=== PATIENT | male | born 1990 | race Caucasian/White ===

== ENCOUNTER 2019-06-13 14:30 | Emergency (ER) | payer SELFPAY ==
[2019-06-13 14:31] VITALS: BP 163/93; PULSE 77; RESP 16; O2SAT 100; BMI 28.3
--- NOTE | 2019-06-13 14:36 | XR_ITS ---
WS: [id number] CHEST 2 VIEWS HISTORY: cp COMPARISON: None available. Lungs: Clear with no abnormality. No pleural effusion or pneumothorax. Cardiac size: Normal. Mediastinum/Aorta: Normal mediastinum. Bones: Normal. XR/XR chest 2V* [id number] IMPRESSION: Normal chest.
--- NOTE | 2019-06-13 14:36 | ECG_ITS ---
Measurements Intervals [place] Rate: 71 P: 48 OK: 132 QRS: 55 QRSD: 93 T: 40 QT: 366 QTc: 398 SINUS RHYTHM INCOMPLETE RIGHT BUNDLE BRANCH BLOCK No previous ECG available for comparison Electronically Signed On 06-13-2019 22:00:17 CDT by Purvi Blanco M.D. [id number]
--- NOTE | 2019-06-13 14:37 | W.ED.CHESTPA ---
HPI - Chest Pain General: Chief Complaint: Chest Pain Stated Complaint: CHEST PAINS Time Seen by Provider: 06/13/19 14:32 Source: patient Mode of arrival: ambulatory Limitations: no limitations History of Present Illness: HPI narrative: 28-year-old male has had chest pain over the last 2 years. States pain is been episodic in nature. He denies any worsening improving factors. He denies any pain currently. Denies vomiting or diarrhea. MD complaint: chest pain Onset (ago): year(s) Timing of current episode: episodic Pain location: substernal Pain radiation: none Severity: mild Quality: sharp Relieving factors: nothing Exacerbating factors: nothing Associated symptoms: Deny abdominal pain, dyspnea, fever(s), nausea or vomiting Review of Systems Const: Denies: fever, chills, body aches or change in appetite Eyes: Denies: blurry vision or eye discomfort ENMT: Denies: throat pain or dental pain Card: Reports: chest pain Resp: Denies: shortness of breath GI: Denies: abdominal pain, nausea, vomiting or diarrhea : Denies: painful urination Musc: Denies: neck pain or back pain Skin/Breast: Denies: rash Neuro: Denies: headache Psych: Denies: depression Chago/Lymph: Denies: easy bruising All/Imm: Denies: hives PFSH ED PFSH: Social History Smoking and tobacco status: never smoked Physical Exam Const: COMMON NORMALS: no apparent distress, oriented x3 and healthy appearing HENMT: COMMON NORMALS: normocephalic and head/scalp atraumatic HEAD & SCALP: normocephalic and atraumatic Eye: COMMON NORMALS: PERRL and EOMs intact bilaterally PUPIL: Yes PERRL Neck/C-Spine: COMMON NORMALS: full ROM and supple Chest: COMMONS NORMALS: inspection of chest normal and palpation of chest normal Resp: COMMON NORMALS: normal respiratory effort, no retractions, no use of accessory muscles and clear to auscultation bilaterally AUSCULTATION: clear to auscultation bilaterally Cardio: COMMON NORMALS: regular rate, regular rhythm and no murmurs RATE: regular rate RHYTHM: regular rhythm GI: COMMON NORMALS: normal to inspection, nondistended, normoactive bowel sounds, soft to palpation, non-tender and no masses PALPATION: Yes soft Extremity: COMMON NORMALS: normal to inspection and full ROM Neuro: COMMON NORMALS: oriented x3, moves all extremities and no focal motor deficits Psych: COMMON NORMALS: mental status grossly normal, thought process normal and cooperative THOUGHT PROCESS: normal thought process Skin: COMMON NORMALS: no rashes or lesions noted and no wounds GENERAL SKIN EXAM: no rashes or lesions noted Course Vital Signs: Vital signs: Vital Signs Pulse Rate 77 06/13/19 14:31 Respiratory Rate 16 06/13/19 14:31 Blood Pressure 163/93 06/13/19 14:31 Pulse Oximetry 100 06/13/19 14:31 MDM - Chest Pain MDM Narrative: Medical decision making narrative: Patient presents with chest pain that is likely noncardiac in nature. Pain is been going on for years and he is young and healthy. Patient's EKG and x-ray here are normal. Has no signs of cardiac cause or pulmonary embolism. Patient is stable for discharge and is return if worsening. 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
[2019-06-13 15:43] VITALS: BP 149/84; PULSE 72; RESP 16; O2SAT 98
== END 2019-06-13 15:43 | disposition home or self-care (01) ==
PROVIDERS: Emergency Provider Emergency Medicine
DX: R07.89 Other chest pain (principal)
CPT/HCPCS: 12345; 71046; 93005; 99281; 99283

== ENCOUNTER → 2021-04-03 09:30 | Outpatient (BNVA) | payer OTHER, SELFPAY | PROVIDERS: Visit Provider Nurse Practitioner Family | DX: Z20.822 Contact with and (suspected) exposure to COVID-19 (principal) | CPT/HCPCS: 87426 ==

== ENCOUNTER 2022-09-29 19:43 | Emergency (ER) | payer BC, SELFPAY ==
--- NOTE | 2022-09-29 19:46 | XRR_ITS ---
PROCEDURE INFORMATION: Exam: XR Chest Exam date and time: 09/29/2022 8:01 PM Age: 31 years old Clinical indication: Pain; Chest pressure; Additional info: Cp TECHNIQUE: Imaging protocol: Radiologic exam of the chest. Views: 1 view. COMPARISON: CR XR chest 2V* [id number] 06/13/2019 2:47 PM FINDINGS: Lungs: Unremarkable. No consolidation. Pleural spaces: Unremarkable. No pleural effusion. No pneumothorax. Heart/Mediastinum: Unremarkable. No cardiomegaly. Bones/joints: Unremarkable. XR/XR chest 1V portable [id number] IMPRESSION: No acute findings.
[2022-09-29 19:49] VITALS: BP 155/96; PULSE 86; RESP 16; TEMP 36.7; O2SAT 99; BMI 27.0
--- NOTE | 2022-09-29 19:54 | ECG_ITS ---
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 Measurements Intervals [place] Rate: 85 P: 12 TN: 108 QRS: 51 QRSD: 82 T: 43 QT: 332 QTc: 396 Interpretive Statements SINUS RHYTHM WITH SHORT TN INTERVAL RSR' in V1, consider RV conduction delay Compared to ECG 06/13/2019 14:49:18 Short TN interval now present Incomplete right bundle-branch block no longer present Electronically Signed On 09-30-2022 12:29:57 CDT by Purvi Blanco M.D. [id number]
--- NOTE | 2022-09-29 20:28 | ED_ITS ---
HPI - Chest Pain General: Chief Complaint: Chest Pain Stated Complaint: chest pain/ back pain Time Seen by Provider: 09/29/22 20:20 Source: patient Mode of arrival: ambulatory Limitations: no limitations History of Present Illness: Patient is a 31-year-old male who presents to ED today with a complaint of chest pain. He states chest pain started earlier today. Patient states he has had countless episodes of previous chest pains that have felt similar. He states he has had discomforts for years although admittedly has never sought any form of medical evaluation. He states pain does not seem to be related to exertion. He does not complain of palpitations or racing heart rate. He has no shortness of breath or difficulty breathing. Does not feel like anxiety is a component. He states most the time pain comes on for a few minutes and then subsides on its own. States he does have a primary care appointment set up for October 13. MD complaint: chest pain Onset (ago): hour(s) Timing of current episode: episodic Prior episodes: Yes Onset: during rest Pain location: substernal and left chest Pain radiation: none Severity: mild Exacerbating factors: nothing Associated symptoms: Deny abdominal pain, dyspnea, fever(s), palpitations or syncope Treatment prior to arrival: none Risk Factors: Coronary artery disease risk factors: none Thoracic aortic dissection risk factors: none Review of Systems Const: Denies: fever(s), chills, body aches, fatigue or malaise Card: Reports: chest pain; Denies: palpitations, irregular heart rhythm, edema, swelling of feet/ankles, lightheadedness, syncope, pre-syncope, dyspnea on exertion, orthopnea or leg pain with exertion Resp: Denies: dyspnea, productive cough, wheezing, pain on inspiration, hemoptysis or chest congestion GI: Denies: abdominal pain Musc: Denies: neck pain, back pain, extremity pain or joint pain Skin/Breast: Denies: rash Neuro: Denies: headache(s) or dizziness PFS ED PFSH: Social History Smoking and tobacco status: never smoked Physical Exam Const: COMMON NORMALS: no acute distress, average body habitus, patient oriented x3, no limitations, healthy appearing, alert and well nourished GENERAL APPEARANCE: cooperative ORIENTATION/CONSCIOUSNESS: Yes awake, Yes oriented to person, Yes oriented to place and Yes oriented to time HENMT: COMMON NORMALS: normocephalic and atraumatic HEAD & SCALP: normal to inspection, normocephalic and atraumatic Neck/C-Spine: COMMON NORMALS: full ROM, no lymphadenopathy, supple, no meningeal signs and no JVD Chest: COMMONS NORMALS: normal inspection of the chest and normal palpation of entire chest wall Resp: COMMON NORMALS: normal respiratory effort and clear to auscultation bilaterally AUSCULTATION: clear to auscultation bilaterally Cardio: COMMON NORMALS: no JVD, regular rate and regular rhythm RATE: regular rate RHYTHM: regular rhythm : COMMON NORMALS: Yes no CVA tenderness BLADDER/KIDNEY EXAM: Yes no CVA tenderness Back/Pelvis: COMMON NORMALS: no CVA tenderness and thoracic and lumbar spine normal to inspection Extremity: COMMON NORMALS: normal to inspection, capillary refill normal, no joint enlargement, no clubbing, cyanosis or edema, no calf tenderness and no pedal edema GENERAL: Yes normal exam except as noted Neuro: COMMON NORMALS: patient oriented x3, moves all extremities, no focal motor deficits, no sensory deficits noted and gait normal SENSORIUM/ORIENTATION: Yes alert, Yes oriented to person, Yes oriented to place and Yes oriented to time MENINGEAL SIGNS: Yes no meningeal signs Skin: COMMON NORMALS: no rashes or lesions noted GENERAL SKIN EXAM: no rashes or lesions noted Course Vital Signs: Vital signs: Vital Signs Temperature 98.0 F 09/29/22 19:49 Pulse Rate 86 09/29/22 19:49 Respiratory Rate 16 09/29/22 19:49 Blood Pressure 155/96 09/29/22 19:49 Pulse Oximetry 99 09/29/22 19:49 MDM - Chest Pain Medical Decision Making Based on patient's history and timeline (reports he has had chest pain episodes for years) I do not have any suspicion for any emergent process causing his chest discomfort. Chest pain is not brought on by exertion. Blood work here is unremarkable. He has a normal trop. CXR is normal. EKG showing sinus rhythm with a short TN interval. Patient has had no complaints of tachycardia or palpitations. He has follow-up with Dr. Mejias on October 13. Patient is stable for discharge. Lab Data 09/29/22 20:13 09/29/22 20:13 Radiology Impressions Chest X-Ray 09/29/22 19:46 IMPRESSION: No acute findings. Laboratory Results WBC 7.0 10^3/uL (4.0-10.0) 09/29/22 20:13 RBC 5.20 10^6/uL (4.1-5.3) 09/29/22 20:13 Hgb 15.6 g/dL (11.7-16.6) 09/29/22 20:13 Hct 44.4 % (42.0-52.0) 09/29/22 20:13 MCV 85.4 fl (80-94) 09/29/22 20:13 MCH 30.0 pg (28.0-34.0) 09/29/22 20:13 MCHC 35.1 g/dL (30.0-36.0) 09/29/22 20:13 RDW 12.4 % (12.1-15.1) 09/29/22 20:13 Plt Count 261 10^3/cmm (130-400) 09/29/22 20:13 MPV 9.6 fL (7.4-10.4) 09/29/22 20:13 Neut % (Auto) 53.3 % 09/29/22 20:13 Lymph % (Auto) 33.9 % 09/29/22 20:13 Petroleum % (Auto) 11.3 % 09/29/22 20:13 Eos % (Auto) 1.0 % 09/29/22 20:13 Baso % (Auto) 0.4 % 09/29/22 20:13 Neut # (Auto) 3.71 10^3/uL (1.8-7.7) 09/29/22 20:13 Lymph # (Auto) 2.4 10^3/uL (0.8-4.8) 09/29/22 20:13 Petroleum # (Auto) 0.8 10^3/uL (0.2-0.9) 09/29/22 20:13 Eos # (Auto) 0.1 10^3/uL (0.0-0.8) 09/29/22 20:13 Baso # (Auto) 0.0 10^3/uL (0.0-0.1) 09/29/22 20:13 Nucleated RBC % (auto) 0 % 09/29/22 20:13 Nucleated RBCs # 0.0 /100WBC 09/29/22 20:13 Sodium 141 mmol/L (136-145) 09/29/22 20:13 Potassium 3.8 mmol/L (3.5-5.1) 09/29/22 20:13 Chloride 102 mmol/L (98-107) 09/29/22 20:13 Carbon Dioxide 29 mmol/L (22-29) 09/29/22 20:13 Anion Gap 13.8 (5-19) 09/29/22 20:13 BUN 15 mg/dL (6-20) 09/29/22 20:13 Creatinine 0.9 mg/dL (0.7-1.2) 09/29/22 20:13 GFR Calculation 99.1 mL/min (90-130) 09/29/22 20:13 Glucose 110 mg/dL (65-115) 09/29/22 20:13 Calculated Osmolality 293 mOsm/kg (285-295) 09/29/22 20:13 Calcium 9.5 mg/dL (8.5-10.5) 09/29/22 20:13 Total Bilirubin 0.9 mg/dL (0.15-1.2) 09/29/22 20:13 AST 19 U/L (0-40) 09/29/22 20:13 ALT 27 U/L (0-41) 09/29/22 20:13 Alkaline Phosphatase 129 U/L (40-130) 09/29/22 20:13 Troponin T Baseline 6 ng/L (0-15) 09/29/22 20:13 Total Protein 7.6 g/dL (6.6-8.7) 09/29/22 20:13 Albumin 4.8 g/dL (3.5-5.2) 09/29/22 20:13 Globulin 2.8 g/dL (1.3-4.6) 09/29/22 20:13 Lipase 41 U/L (13-60) 09/29/22 20:13 Discharge Plan Discharge Patient Disposition: Home Clinical Impression: Atypical chest pain Condition: Stable Prescriptions: No Action No Known Home Medications Discharge Orders: Discharge ED (Routine); Ordered 09/29/22 Ordered By: Lisa Lau Stand Alone Forms: Work/School Release Coding Level of Care Code ED Logistics Planning Manager for Yosef Nunes
[2022-09-29 20:38] LABS: Basophils % 0.4 %; Eosinophils # 0.1 10^3/uL (0.0-0.8); Hematocrit 44.4 % (42.0-52.0); Hemoglobin 15.6 g/dL (11.7-16.6); Lymphocytes # 2.4 10^3/uL (0.8-4.8); Lymphocytes % 33.9 %; Mean Corpuscular HGB Conc 35.1 g/dL (30.0-36.0); Mean Corpuscular Volume 85.4 fl (80-94); Mean Platelet Volume 9.6 fL (7.4-10.4); Monocytes # 0.8 10^3/uL (0.2-0.9); Monocytes % 11.3 %; Neutrophils # 3.71 10^3/uL (1.8-7.7); Neutrophils % 53.3 %; Nucleated Red Blood Cells % 0 %; Platelet Count 261 10^3/cmm (130-400); Red Cell Distribution Width 12.4 % (12.1-15.1)
[2022-09-29 20:50] LABS: Troponin(5th) Baseline 6 ng/L (0-15)
[2022-09-29 20:52] LABS: Alanine Aminotransferase 27 U/L (0-41); Albumin Level 4.8 g/dL (3.5-5.2); Alkaline Phosphatase 129 U/L (40-130); Anion Gap 13.8 (5-19); Aspartate Amino Transferase 19 U/L (0-40); Blood Urea Nitrogen 15 mg/dL (6-20); Calcium 9.5 mg/dL (8.5-10.5); Carbon Dioxide 29 mmol/L (22-29); Chloride 102 mmol/L (98-107); Creatinine Clr Calc Pharmacy 152.5917; Globulin 2.8 g/dL (1.3-4.6); Glomerular Filtration Rate 99.1 mL/min (90-130); Glucose 110 mg/dL (65-115); Lipase 41 U/L (13-60); Osmolality Calculated 293 mOsm/kg (285-295); Potassium 3.8 mmol/L (3.5-5.1); Sodium 141 mmol/L (136-145); Total Bilirubin 0.9 mg/dL (0.15-1.2); Total Protein 7.6 g/dL (6.6-8.7)
== END 2022-09-29 21:39 | disposition home or self-care (01) ==
PROVIDERS: Emergency Medicine; Emergency Provider Physician Assistant
DX: R07.89 Other chest pain (principal)
CPT/HCPCS: 36415; 71045; 80053; 83690; 84484; 85025; 93005; 99285

== ENCOUNTER 2022-10-01 20:48 | Emergency (ER) | payer SELFPAY ==
[2022-10-01 21:20] VITALS: BP 142/88; PULSE 72; RESP 18; TEMP 36.6; O2SAT 99; BMI 26.1
--- NOTE | 2022-10-01 21:50 | ED_ITS ---
HPI - General Adult General: Chief complaint: General Medical Stated complaint: Cant Sleep Weak Time Seen by Provider: 10/01/22 21:49 History of Present Illness: 31-year-old male patient comes in today with complaints of low back pain, difficulty sleeping, and weakness. Patient was evaluated 3 days ago and reports no significant changes from his last exam. Patient appears nontoxic. Patient appears anxious. Patient reports occasional use and ibuprofen for pain. Associated symptoms: Deny chest pain, dyspnea or rash Review of Systems General: Reports: 10 or more systems reviewed and unremarkable except in HPI and below Card: Denies: chest pain Resp: Denies: dyspnea Musc: Reports: back pain Skin/Breast: Denies: rash PFSH ED PFSH: Social History Smoking and tobacco status: never smoked Physical Exam Const: COMMON NORMALS: alert HENMT: COMMON NORMALS: normocephalic HEAD & SCALP: normocephalic Neck/C-Spine: COMMON NORMALS: full ROM Resp: COMMON NORMALS: normal respiratory effort and clear to auscultation bilaterally AUSCULTATION: clear to auscultation bilaterally Cardio: COMMON NORMALS: regular rate and regular rhythm RATE: regular rate RHYTHM: regular rhythm Back/Pelvis: LUMBAR SPINE/LOWER BACK: Yes paraspinal muscle tenderness Lumbar paraspinal muscle tenderness: right Extremity: COMMON NORMALS: no pedal edema Neuro: SENSORIUM/ORIENTATION: Yes alert Skin: COMMON NORMALS: turgor normal GENERAL SKIN EXAM: turgor normal Course Vital Signs: Vital signs: Vital Signs Temperature 97.9 F 10/01/22 21:20 Pulse Rate 66 10/01/22 23:16 Respiratory Rate 18 10/01/22 21:20 Blood Pressure 142/88 10/01/22 21:20 Pulse Oximetry 100 10/01/22 23:16 Oxygen Delivery Me thod Room Air 10/01/22 23:[address] [facility] - General Adult Medical Decision Making Patient comes in today with difficulty sleeping, insomnia, and early waking. Patient also reports low back pain and muscle spasm in the back. Patient denies any suicidal or homicidal thoughts. Patient appears nontoxic. Patient had a recent evaluation with full blood work and chest x-ray that showed no significant abnormalities. Differential diagnosis includes not limited to depression, intervertebral disc disease, facet arthritis, anxiety about health, generalized anxiety disorder, lumbar strain. Reviewed labs from 2 days ago and everything was unremarkable. X-ray of the lumbar spine noted no fracture or significant abnormality. Patient was given a dose of Toradol and lorazepam with improvement of symptoms. Patient was written a prescription for muscle relaxer and recommended to follow-up with primary care. Patient reported understanding agreed to plan. Lab Data Radiology Impressions Lumbar Spine X-Ray 10/01/22 22:59 IMPRESSION: 1. No acute fracture of the lumbar spine. CT scan would be recommended if there is continuing clinical concern for fracture. 2. Incidental/nonacute findings are listed in the report. Discharge Plan Discharge Patient Disposition: Home Clinical Impression: Spasm of muscle of lower back Insomnia Qualifiers: Insomnia type: unspecified Qualified Code(s): G47.00 - Insomnia, unspecified Condition: Stable Prescriptions: New tizanidine 4 mg tablet 4 mg PO TID PRN (Reason: muscle spasticity) Qty: 15 0RF Discharge Orders: Discharge ED (Routine); Ordered 10/01/22 Ordered By: Matias Danielson Referrals: Oz Mejias MD [Primary Care Provider] - Discharge Diet: Usual diet Discharge Activity: Increase activity as tolerated Patient Instructions: Low Back Strain (ED), Lower Back Exercises (ED) Activity Restrictions/Additional Instructions: Gentle stretching and range of motion exercises. Use acetaminophen and ibuprofen as needed for pain. Use tizanidine as needed for muscle spasms. Avoid using tizanidine when operating a motor vehicle or any equipment that may put yourself or others at danger. You may use the tizanidine at bedtime to help with relaxation of the muscles to sleep. Use ice or heat for further pain relief. Follow-up with primary care in 1 week for recheck. Return to ED for new concerns or worsening symptoms such as blood in urine, blood in vomit or stool, fever greater than 100.4, or new concerns. Coding Level of Care Code ED Lab Technician for Yosef Nunes
--- NOTE | 2022-10-01 22:59 | XRR_ITS ---
PROCEDURE INFORMATION: Exam: XR Lumbosacral Spine Exam date and time: 10/01/2022 11:14 PM Age: 31 years old Clinical indication: Low back pain TECHNIQUE: Imaging protocol: Radiologic exam of the lumbosacral spine. Views: 2 or 3 views. COMPARISON: No relevant prior studies available. FINDINGS: Bones/joints: 5 [id number] vertebral bodies. Vertebral body height is maintained. No subluxation. Normal bone mineralization. Intervertebral disc space height is preserved. Straightening of the lumbar spine. This may be due to positioning versus muscle spasm. The right and left sacroiliac joints are unremarkable. No acute fracture. Soft tissues: No paravertebral soft tissue abnormality. No radiopaque foreign body. XR/XR lumbar spine 2-3V* [id number] IMPRESSION: 1. No acute fracture of the lumbar spine. CT scan would be recommended if there is continuing clinical concern for fracture. 2. Incidental/nonacute findings are listed in the report.
[2022-10-01] MEDS: LORazepam 2 mg/mL INJ 1 mL IM (23:12)
[2022-10-01] MEDS: ketorolac 30 mg/mL INJ IM (23:12)
[2022-10-01 23:16] VITALS: PULSE 66; O2SAT 100
== END 2022-10-02 00:16 | disposition home or self-care (01) ==
PROVIDERS: Emergency Provider Nurse Practitioner Family; PCP Family Medicine
DX: M62.830 Muscle spasm of back (principal); G47.00 Insomnia, unspecified
CPT/HCPCS: 72100; 96372; 99284; J1885; J2060

== ENCOUNTER → 2023-09-12 17:00 | Outpatient (BNVA) | payer OTHER, SELFPAY | PROVIDERS: PCP Family Medicine; Visit Provider Nurse Practitioner | DX: N50.89 Other specified disorders of the male genital organs (principal) | CPT/HCPCS: 86695; 86696; 87491; 87591; 87661 ==